=== PATIENT | male | born 2000 | race Caucasian/White ===

== ENCOUNTER 2023-04-09 16:15 | Emergency (ER) | payer OTHER, SELFPAY ==
[2023-04-09 16:21] VITALS: BP 150/90
[2023-04-09 16:57] VITALS: BMI 33.1
--- NOTE | 2023-04-09 16:59 | ED.GENMED ---
History of Present Illness
General
Chief Complaint: Crisis Evaluation
Source: patient
Time Seen by Provider: 04/09/23 16:35
Travel History
Have you had any contact with someone who has COVID-19?: No
Do you have any symptoms of coronavirus? Fever > 100 degrees, chills, cough, shortness of breath, sore throat, loss of taste or smell, muscle aches, or headache?: No
History of Present Illness
History of Present Illness:
This patient is a 23-year-old male with a history of depression/anxiety, currently on medication, most recently seen at [facility] on March 31 at which time he did not express SI. He presents today with increasing depressive symptoms and thoughts of
not wanting to live. He denies having a specific plan in place. Patient also suffers from anxiety and states that he has been using his mother's Klonopin from time to time. He does not feel it that is helping. He denies any physical complaints
such as chest pain, shortness of breath, fever, chills, headache, or other complaints.
Past History
Past History
ED Past Medical History: Asthma, Psychiatric and Other (per mom Began skipping school more when switched from [employer] to Public school. Diagnosed with 'school phobia' and stayed out for 6 months in 8th grade.)
ED Past Surgical History: None
Patient has exhibited threatening behavior?: No (When questioned, patient denies attempt at suicide and he denies feeling suicidal at this time.)
Social History
Tobacco: Non-smoker
Alcohol: None
Drug: None
Personal: Single
Living: with family (Mom states she is going through divorce with still in the house. She feels this contributes to the stress withing the household.)
Employment: Not employed
Family History
Family History: Other (Mother of patient states sibling with depression.)
Phy Exam
Physical Exam
Physical Exam:
GENERAL: Alert , in no apparent distress
EYE: pupils equal and reactive
NECK: Supple, no significant adenopathy.
ENT: o/p clr, mmm.
CARDIAC: Regular rate and rhythm .
LUNGS: Clear breath sounds bilaterally, no acute respiratory distress, no wheezes/rales/rhonchi
ABDOMEN: Soft, without focal tenderness, no r/g, no cvat
NEUROLOGICAL: Alert and oriented, no focal neuro deficits
SKIN: Warm and dry, skin intact.
MUSCULOSKELETAL: No edema, well perfused.
PSYCH: Depressed affect, tearful at times
Course
Orders/Labs/Results
Orders:
Orders
04/09/23 16:26
Case Management Consult ONCE
Case Management Consult: Other
Requested By:: NURSING
Comment: per protocol
04/09/23 17:06
Acetaminophen Urgent
Alcohol Urgent
Complete Blood Count/With Diff Urgent
Comprehensive Metabolic Panel Urgent
Salicylate Urgent
TSH Reflex To Free T4 Urgent
Urinalysis Reflex To Culture Urgent
Date Specimen was Collected: 04/09/23
Time Specimen was Collected: 16:54
Urine Drug Abuse Screen Urgent
Date Specimen was Collected: 04/09/23
Time Specimen was Collected: 16:54
04/09/23 18:05
Crisis Consult Urgent
Reason for Consult: reports SI
Abnormal Lab Results
04/09/23
17:06
MCV 79.4 L fL
(80.0-94.0)
Glucose 105 H mg/dl
(70-99)
Salicylates < 1.0 L mg/dl
(2.0-20.0)
Acetaminophen < 10 L ug/ml
(10-30)
04/09/23 17:06
04/09/23 17:06
Vital Signs
Initial and Last Documented VS:
Initial Vital Signs
Temp Pulse Resp BP Pulse Ox
98.3 F 77 20 150/90 99
04/09/23 16:21 04/09/23 16:21 04/09/23 16:21 04/09/23 16:21 04/09/23 16:21
Last Documented Vital Signs
Temp Pulse Resp BP Pulse Ox
98.3 F 77 20 150/90 99
04/09/23 16:21 04/09/23 16:21 04/09/23 16:21 04/09/23 16:21 04/09/23 16:21
*Critical Care Note
Total Time (30-74mins, 75-104mins- exclusive of procedures): Not Applicable
Update Note
Update Note:
Patient presents to the Emergency Department with ____depressive feelings
Number and Complexity of Problems Addressed at the Encounter
� Chronic conditions affecting care:
� Acute Exacerbation and/or Progression of Chronic Illness:
� Differential Diagnosis includes: But not limited to major depressive disorder,electrolyte d/o, etc.
Amount and/or Complexity of Data to be Reviewed and Analyzed
� I performed an independent evaluation of and my interpretation is:
EKG:
CT:
Xrays:
Laboratory Studies: unremarkable
Other:
� Review of other/old records reveals:
� Clinical information was obtained by an independent historian:
� Prescriptions/Medications Considered but not given:
� Further testing considered but not performed:
Risk of Complications and/or Morbidity or Mortality of Patient Management
� Social determinants of health affecting care:
� Discussion with other providers (PCP, Hospitalists, Consultants, etc):
� Escalation of care including admission/observation vs risk of discharge considered:Brother remains at bedside, pt denies si repeatedly now and has never had a plan, however is agreeable to 201 inpatient care. Crisis aware and
will make arrangments for.
ED Attending Note
-
Portions of this chart may have been created with voice recognition software.� Occasional wrong word or��sound alike� substitutions may have occurred due to the inherent limitations of voice recognition software.
Discharge Plan
Departure
Patient Disposition: [facility]
Date of Disposition: 04/09/23
Time of Disposition: 22:49
Condition: Good
Discharge Problem:
Depression
Instructions: Depression, Adult (DC), BLOOD PRESSURE
Prescriptions:
No Action
clonazepam 0.5 MG tablet
0.5 mg PO HS
albuterol sulfate [Ventolin HFA] 90 MCG/PUFF HFA aerosol inhaler
1 - 2 puff inhalation Q4HPRN PRN (Reason: sob/wheezing)
Patient Comments:
Patient stated that he uses it more than prescribed
fexofenadine [Aminata] 180 MG tablet
180 mg PO DAILY
albuterol sulfate [Proventil HFA] 90 MCG/PUFF HFA aerosol inhaler
2 puff inhalation Q4HPRN PRN (Reason: shortness of breath) Qty: 1 0RF
citalopram 20 MG tablet
40 mg PO DAILY
Referrals:
UNKNOWN - PT DOES,NOT KNOW [Unknown Provider] -
Activity Restrictions/Additional Instructions:
IF YOU DEVELOP CHEST PAIN, TROUBLE BREATHING, FEVER, VOMITING, THOUGHTS OF WANTING TO HURT YOURSELF OR OTHERS, OR OTHER WORRISOME SIGNS, GO TO THE ER IMMEDIATELY!
Interventions
Interventions:
*Risk Screen - Suicide Last Done: 04/09/23 16:24
*General Assessment Last Done: 04/09/23 16:57
*Neglect/Abuse Screening Last Done: 04/09/23 16:24
*ED COVID-19 Vaccine History Last Done: 04/09/23 16:57
*Nursing Disposition Last Done: 04/09/23 22:54
ED-Psychological Assessment Last Done: 04/09/23 16:57
Discharge Date and Time
Discharge Date/Time: 04/09/23 22:54
[2023-04-09 17:14] LABS: % Basophils 0.8 % (0-2); % Eosinophils 1.5 % (0-6); % Immature Granulocytes 0.3 % (0-0.5); % Monocytes 4.9 % (1.7-9.3); % Neutrophils 56.5 % (42.2-75.2); Absolute Basophils 0.1 10^3/uL (0-0.2); Absolute Eosinophils 0.1 10^3/uL (0-0.7); Absolute Lymphocytes 2.9 10^3/uL (1.2-3.4); Absolute Monocytes 0.4 10^3/uL (0.1-0.6); Absolute Neutrophils 4.5 10^3/uL (1.4-6.5); Hematocrit 46.9 % (39.0-52.0); Hemoglobin 16.7 g/dL (13.0-18.0); Mean Corp Hgb Conc. 35.6 g/dL (33.0-37.0); Mean Corpuscular Hgb 28.3 pg (27.0-31.0); Mean Corpuscular Volume 79.4 fL (80.0-94.0); Mean Platelet Volume 9.7 fL (7.4-10.4); Nucleated Red Blood Cells % 0 % (-); Platelet Count 330 10^3/uL (130-400); Red Blood Cell Count 5.91 10^6/uL (4.70-6.10); White Blood Cell Count 7.9 10^3/uL (4.8-10.8)
[2023-04-09 17:18] LABS: Urine Albumin Negative (Neg - Trace); Urine Bilirubin Negative (Negative); Urine Character Clear (Clear); Urine Color Yellow; Urine Glucose Negative (Negative); Urine Ketone Negative (Negative); Urine Leukocyte Negative (Negative); Urine Nitrite Negative (Negative); Urine Occult Blood Negative (Negative); Urine Urobilinogen Negative (Neg - 1+); Urine pH 6.5 (5.0-9.0)
[2023-04-09 17:26] LABS: Amphetamines Negative (Negative); Barbiturates Negative (Negative); Benzodiazepines Negative (Negative); Buprenorphine Negative (Negative); Cocaine Negative (Negative); Marijuana Negative (Negative); Methadone Negative (Negative); Methamphetamines Negative (Negative); Opiates Negative (Negative); Phencyclidine Negative (Negative); Tricyclic Antidepressants Negative (Negative)
[2023-04-09 17:37] LABS: ALT (SGPT) 42 U/L (0-50); AST (SGOT) 30 U/L (17-59); Acetaminophen < 10 ug/ml (10-30); Alkaline Phosphatase 87 U/L (38-126); Blood Urea Nitrogen 13 mg/dl (9-20); Carbon Dioxide 28 mmol/L (22-30); Chloride 103 mmol/L (98-107); Estimated Creatinine Clearance > 125 ml/min; Glucose 105 mg/dl (70-99); Potassium 4.4 mmol/L (3.5-5.1); Salicylate < 1.0 mg/dl (2.0-20.0); Sodium 138 mmol/L (135-145); Total Bilirubin 0.7 mg/dl (0.2-1.3); eGFR > 60.00
[2023-04-09 17:38] LABS: Alcohol None Detected
[2023-04-09 18:08] LABS: TSH Reflex To Free T4 2.05 uIU/ml (0.47-4.68)
== END 2023-04-09 22:54 ==
LOC: EMR 16:15
PROVIDERS: EMERGENCY PHYSICIAN Emergency Medicine
DX: F32.A Depression, unspecified (principal); F41.9 Anxiety disorder, unspecified
CPT/HCPCS: 99285; 80053; 80143; 80179; 80306; 81003; 82077; 84443; 85025

== ENCOUNTER 2024-10-12 17:15 | Emergency (ER) | payer OTHER, SELFPAY ==
[2024-10-12 17:25] VITALS: BP 143/79
[2024-10-12 17:52] LABS: Hematocrit 44.4 % (39.0-52.0); Hemoglobin 15.4 g/dL (13.0-18.0); Mean Corp Hgb Conc. 34.7 g/dL (33.0-37.0); Mean Corpuscular Volume 80.6 fL (80.0-94.0); Nucleated Red Blood Cells % 0 % (-); Platelet Count 281 10^3/uL (130-400); Red Cell Dist. Width 12.2 % (11.5-14.5)
[2024-10-12 18:18] LABS: ALT (SGPT) 32 U/L (0-50); AST (SGOT) 18 U/L (17-59); Albumin 5.1 g/dl (3.5-5.0); Alkaline Phosphatase 62 U/L (38-126); Blood Urea Nitrogen 16 mg/dl (9-20); Calcium 9.8 mg/dl (8.4-10.2); Carbon Dioxide 25 mmol/L (22-30); Chloride 105 mmol/L (98-107); Glucose 89 mg/dl (70-99); Potassium 4.4 mmol/L (3.5-5.1); Sodium 140 mmol/L (135-145); Total Protein 7.3 g/dl (6.3-8.2); eGFR > 60.00
[2024-10-12 18:19] LABS: Troponin I < 0.012 ng/ml
[2024-10-12 19:46] VITALS: BP 125/73; BMI 24.9
--- NOTE | 2024-10-12 19:49 | EDRN ---
Pt notes for the past week that his chest gets tight with any exercise. last night, pt went on a walk and without 10-15 minutes his chest got tight. Tightness goes away with rest. Pt did not use his inhaler because he did not have any trouble
breathing. No fever/chills,cough, abd pain, n/v, weakness, dizziness.
[2024-10-12 20:00] VITALS: BP 121/67
[2024-10-12 21:00] VITALS: BP 130/59
--- NOTE | 2024-10-12 21:25 | ED.GENMED ---
History of Present Illness
General
Chief Complaint: Chest Pain
Source: patient
Exam Limitations: none
Time Seen by Provider: 10/12/24 20:50
Nursing documentation reviewed up to this point in time: agreed with
History of Present Illness
History of Present Illness:
24-year-old male who reports experiencing chest tightness with physical activities such as lifting weights or walking over the past week. The symptom onset occurs about 5-10 minutes into the activity and is described as significant pressure over the
entire chest, non radiating. The tightness resolves with rest. The patient does not experience shortness of breath, sweating, nausea, vomiting, lightheadedness, or dizziness associated with the chest pain. He continues walking until he returns home
despite the discomfort.
The patient has recently increased his weightlifting efforts over the past six months. No change in pain with movement or pressing on th chest.
Past History
Past History
ED Past Medical History: Asthma, Psychiatric and Other (per mom Began skipping school more when switched from [employer] to [employer] school. Diagnosed with 'school phobia' and stayed out for 6 months in 8th grade.)
ED Past Surgical History: None
Patient has exhibited threatening behavior?: No (When questioned, patient denies attempt at suicide and he denies feeling suicidal at this time.)
Social History
Tobacco: Non-smoker
Alcohol: None
Drug: None
Personal: Single
Living: with family (Mom states she is going through divorce with still in the house. She feels this contributes to the stress withing the household.)
Employment: Not employed
Family History
Family History: Other (Mother of patient states sibling with depression.)
Review of Systems
Review of Systems
Allergies reviewed?: Yes
All Other Systems: ROS reviewed and negative except as documented in HPI and ROS
Constitutional: Denies fever or fatigue
Respiratory: Denies cough or trouble breathing
Cardiac: Reports chest pain; Denies diaphoresis or palpitations
ABD/GI: Denies abdominal pain, nausea or vomiting
Musculoskeletal: Reports no symptoms
Skin: Reports no symptoms
Neurological: Reports no symptoms
Phy Exam
Physical Exam
Physical Exam:
GENERAL: No acute distress. A&Ox3.
CONSTITUTIONAL: Afebrile.
EYES: clear, conjunctivae normal
ENMT: moist mucus membranes, Pharynx nl
RESPIRATORY: Regular respirations, nonlabored, lungs clear.
CARDIOVASCULAR: Regular rate and rhythm, no murmurs, no rubs.
GI: Soft, nontender, normal BS
MUSCULOSKELETAL: Unable to reproduce chest pain with palpation of chest wall/ribs. Moves with ease. Well perfused.
SKIN: Warm, dry, pink
PSYCH: Normal mood and affect. Well kept, interactive and appropriate
NEUROLOGIC: Awake, alert and oriented. No focal neurological deficits
Scores
Heart Score for Chest Pain Patients
STEMI patient?: Not applicable
Course
Orders/Labs/Results
Orders:
Orders
10/12/24 17:28
Electrocardiogram (*1) Urgent
Reason for Study: Chest Pain
EKG- Treatment ONCE
10/12/24 17:35
Complete Blood Count/With Diff Urgent
Comprehensive Metabolic Panel Urgent
Troponin I Urgent
10/12/24 20:59
CR Chest - 2 Views Urgent
Comment:
Reason For Exam: chest pjressure with exercising
Abnormal Lab Results
10/12/24
17:35
MPV 10.5 H fL
(7.4-10.4)
Albumin 5.1 H g/dl
(3.5-5.0)
10/12/24 17:35
10/12/24 17:35
Vital Signs
Initial and Last Documented VS:
Initial Vital Signs
Temp Pulse Resp BP Pulse Ox
98.7 F 81 16 143/79 100
10/12/24 17:25 10/12/24 17:25 10/12/24 17:25 10/12/24 17:25 10/12/24 17:25
Last Documented Vital Signs
Temp Pulse Resp BP Pulse Ox
98.7 F 52 15 121/69 100
10/12/24 17:25 10/12/24 22:39 10/12/24 21:00 10/12/24 22:39 10/12/24 22:39
Head Bone Grinder consulted with Physician
Head Bone Grinder consulted with physician?: Yes
Name of Physician Consulted: Gael
MDM/Problems Addressed
Differential Diagnosis Includes:
musculoskeletal chest pain, GERD, ACS, costochondritis, MVP, myocarditis, anxiety
MDM/Problems Addressed:
24-year-old male who reports experiencing chest tightness with physical activities such as lifting weights or walking over the past week. The symptom onset occurs about 5-10 minutes into the activity and is described as significant pressure over the
entire chest, non radiating. The tightness resolves with rest. The patient does not experience shortness of breath, sweating, nausea, vomiting, lightheadedness, or dizziness associated with the chest pain. He continues walking until he returns home
despite the discomfort.
The patient has recently increased his weightlifting efforts over the past six months. No change in pain with movement or pressing on th chest.
Blood work, including troponin levels, is normal, suggesting no acute cardiac damage.
10:15 PM: Chest x-ray NAD
Pt reassured.
Referred to cardiology
Case discussed with Dr. Mayo who agrees with plan
*Pulse Oximetry
SaO2: 100
Oxygen Mode of Delivery: Room air
Patient hypoxic: no
*Critical Care Note
Total Time (30-74mins, 75-104mins- exclusive of procedures): Not Applicable
ED Attending Note
-
Portions of this chart may have been created with voice recognition software.� Occasional wrong word or��sound alike� substitutions may have occurred due to the inherent limitations of voice recognition software.
Discharge Plan
Departure
Patient Disposition: Home (Routine Discharge)
Date of Disposition: 10/12/24
Time of Disposition: 22:17
Patient with high blood pressure during this ER visit?: No
Condition: Good
Discharge Problem:
Atypical chest pain
Instructions: Chest Pain That Is Not Caused by the Heart (DC), Costochondritis (DC)
Prescriptions:
No Action
albuterol sulfate [Ventolin HFA] 90 MCG/PUFF HFA aerosol inhaler
1 - 2 puff inhalation Q4HPRN PRN (Reason: sob/wheezing)
Aminata
1 tab PO DAILY
Patient Comments:
pt does not know mg
Referrals:
NONE,* [Family Provider, Internal Medicine]
Activity Restrictions/Additional Instructions:
As we discussed, there is nothing worrisome in your workup here today.
I have provided you with instructions on costochondritis, FYI.
Your EKG is normal and all of your lab work is normal. Specifically there is no indication of heart attack or injury to your heart.
I sent your contact information to our primary care provider hotline and someone should be calling you within the next couple of days to get you a primary care doctor.
Interventions
Interventions:
*Risk Screen - Suicide Last Done: 10/12/24 17:25
*General Assessment Last Done: 10/12/24 17:25
*Neglect/Abuse Screening Last Done: 10/12/24 17:25
*ED- Fall Risk Assessment Last Done: 10/12/24 19:51
*Nursing Disposition Last Done: 10/12/24 22:47
ED- Cardiac Assessment Last Done: 10/12/24 19:57
Discharge Date and Time
Discharge Date/Time: 10/12/24 22:47
Print Language: DIVEHI
[2024-10-12 22:39] VITALS: BP 121/69
== END 2024-10-12 22:47 | disposition home or self-care (01) ==
LOC: EMR 17:15
PROVIDERS: Emergency Medicine; EMERGENCY PHYSICIAN Student in an Organized Health Care Education/Training Program
DX: R07.89 Other chest pain (principal); J45.909 Unspecified asthma, uncomplicated; Z63.8 Other specified problems related to primary support group
CPT/HCPCS: 99284; 71046; 80053; 84484; 85025; 93005

== ENCOUNTER 2024-10-15 01:37 | Emergency (ER) | payer OTHER, SELFPAY ==
[2024-10-15 01:37] VITALS: BP 138/69
--- NOTE | 2024-10-15 06:03 | ED.GENMED ---
History of Present Illness
General
Chief Complaint: Anxiety
Time Seen by Provider: 10/15/24 06:02
History of Present Illness
History of Present Illness:
PAST MEDICAL HISTORY AND REVIEW OF OLD RECORDS
- History of anxiety/depression, panic attack, asthma. I reviewed records, the patient was seen here 3 days ago with chest discomfort. At that time, troponin was unremarkable.
Note:
CHIEF COMPLAINT(S)
Episodes of muscle spasms and anxiety attributed to panic attacks.
HISTORY OF PRESENT ILLNESS
The patient is a 24-year-old male who presented to the emergency department with a history of chest pressure occurring during exertion over the past week. The patient reports that the symptoms did not occur on a day of rest. The initial presentation
was a week ago when he experienced pressure in the chest associated with physical exertion, described as 'a lot of pressure in my chest.' Two nights ago, at approximately 11:30 PM, the patient experienced what he describes as a panic attack. This
involved pervasive muscle spasms throughout his body, including the legs, arms, and chest, alongside a pounding heart. The occurrence happened while he was awake, and he noted that later his muscles began 'shaking again for no reason.'
The patient has a history of cessation of venlafaxine (Effexor) and bupropion (Wellbutrin) approximately one year ago, noting that about three months after stopping these medications, he began experiencing muscle spasms that lasted up to an hour. On
the day of presentation, he reported an episode lasting 2.5 hours. He has not been on any medications since discontinuing venlafaxine and bupropion.
He had previously been prescribed these medications by a psychiatrist but discontinued them on his own. The patient is wary of resuming daily medications but is open to as-needed medication to manage acute episodes. During earlier experiences with
panic attacks, he had used a family members clonazepam (Klonopin) with some relief.
The patient denies being a danger to himself or others.
PHYSICAL EXAM
General: Alert, no acute distress.
Skin: Warm, dry.
Head: Normocephalic, atraumatic.
Neck: Supple, trachea midline.
Eye Ears, nose, mouth and throat: Oral mucosa moist.
Cardiovascular: Normal peripheral perfusion, No edema.
Respiratory: Respirations are non-labored.
Gastrointestinal : Abdomen nondistended
Back: Normal range of motion, Normal alignment.
Musculoskeletal: Normal ROM, normal strength.
Neurological: Alert and oriented to person, place, time, and situation, No focal neurological deficit observed.
Psychiatric: Cooperative, appropriate mood & affect other than maybe somewhat (affect
PROBLEM LIST
Acute Problems:
- Chest pressure with exertion
- Panic attack with muscle spasms
PLAN
- Provide a prescription for Alprazolam (Xanax) 0.5 mg to be taken as needed for severe panic attack episodes, ensuring it is used sparingly to avoid dependency issues.
- Review of previous lab results from an earlier visit, indicating normal cardiac markers.
- Option to return to prior medications (venlafaxine and bupropion) should symptoms persist and patient is willing, with a follow-up with a psychiatrist recommended to explore this option.
DIFFERENTIAL DIAGNOSIS
The Differential Diagnosis includes, in no particular order and is not limited to:
- Panic disorder
- Generalized anxiety disorder
- Cardiovascular disease (e.g., myocardial ischemia)
- Substance withdrawal syndrome
- Hyperthyroidism
- Electrolyte imbalance
- Conversion disorder
- Pheochromocytoma
- Seizure disorder
- Depression with somatic symptoms
Disposition:
SUMMARY OF ENCOUNTER
The patient, a 24-year-old male, presented to the emergency department with episodes of muscle spasms and anxiety attributed to panic attacks. He reported chest pressure during exertion over the past week, but presently feels improved. The patients
cardiac workup from a prior visit was unremarkable. Due to his reluctance to resume daily medication regimen, an as-needed approach was favored. A prescription for alprazolam (Xanax) 0.5 mg was provided to be used sparingly for severe panic attacks.
PLAN
- Prescribe alprazolam (Xanax) 0.5 mg to be taken as needed for acute episodes of panic attacks. Advise caution to avoid dependency.
- Monitor symptoms and reassess medication needs based on patients experience.
INDEPENDENT REVIEW OF LABS AND INTERPRETATION OF TESTS
My independent review of prior cardiac workup indicates the results were unremarkable, confirming no acute cardiac abnormalities.
MEDICATION RECONCILIATION
- Prescription provided for alprazolam (Xanax) 0.5 mg, to be used as needed for acute panic episodes.
MEDICAL DECISION MAKING
1. Number and Complexity of Problems Addressed: Chronic conditions affecting care include panic attacks and anxiety-associated muscle spasms.
2. Data:
- Category 1: Reviewed prior cardiac workup which was unremarkable.
3. Risk: Prescription medication was prescribed, and caution is advised due to potential dependency on alprazolam.
DIAGNOSIS
- Panic disorder (F41.0)
- Muscle spasm (M62.838)
Past History
Past History
ED Past Medical History: Asthma, Psychiatric and Other (per mom Began skipping school more when switched from [employer] to [employer] school. Diagnosed with 'school phobia' and stayed out for 6 months in 8th grade.)
ED Past Surgical History: None
Patient has exhibited threatening behavior?: No (When questioned, patient denies attempt at suicide and he denies feeling suicidal at this time.)
Social History
Tobacco: Non-smoker
Alcohol: None
Drug: None
Personal: Single
Living: with family (Mom states she is going through divorce with still in the house. She feels this contributes to the stress withing the household.)
Employment: Not employed
Family History
Family History: Other (Mother of patient states sibling with depression.)
Phy Exam
Physical Exam
Physical Exam:
See HPI
Course
Vital Signs
Initial and Last Documented VS:
Initial Vital Signs
Temp Pulse BP Pulse Ox
36.5 C 88 138/69 100
10/15/24 01:37 10/15/24 01:37 10/15/24 01:37 10/15/24 01:37
Last Documented Vital Signs
Temp Pulse BP Pulse Ox
36.5 C 88 138/69 100
10/15/24 01:37 10/15/24 01:37 10/15/24 01:37 10/15/24 06:04
*Pulse Oximetry
SaO2: 100
Oxygen Mode of Delivery: Room air
Patient hypoxic: no
*Critical Care Note
Total Time (30-74mins, 75-104mins- exclusive of procedures): Not Applicable
ED Attending Note
-
Portions of this chart may have been created with voice recognition software.� Occasional wrong word or��sound alike� substitutions may have occurred due to the inherent limitations of voice recognition software.
Discharge Plan
Departure
Patient Disposition: Home (Routine Discharge)
Date of Disposition: 10/15/24
Time of Disposition: 06:15
Patient with high blood pressure during this ER visit?: Yes
Discharge Problem:
Anxiety attack
Instructions: Anxiety, Adult (DC), BLOOD PRESSURE
Prescriptions:
New
alprazolam [Xanax] 0.5 mg tablet
0.5 - 1 mg PO HS PRN (Reason: anxiety) Qty: 10 0RF
No Action
albuterol sulfate [Ventolin HFA] 90 MCG/PUFF HFA aerosol inhaler
1 - 2 puff inhalation Q4HPRN PRN (Reason: sob/wheezing)
Aminata
1 tab PO DAILY
Patient Comments:
pt does not know mg
Referrals:
NONE,* [Family Provider, Internal Medicine]
Activity Restrictions/Additional Instructions:
I sent a prescription for Xanax to your pharmacy. Only take this on an as-needed basis for severe symptoms. Return here if worse or other concerns.
Interventions
Interventions:
*Risk Screen - Suicide Last Done: 10/15/24 02:02
*General Assessment Last Done: 10/15/24 05:30
*Neglect/Abuse Screening Last Done: 10/15/24 02:02
*ED- Fall Risk Assessment Last Done: 10/15/24 02:02
*ED COVID-19 Vaccine History Last Done: 10/15/24 02:02
ED-Psychological Assessment Last Done: 10/15/24 05:30
Discharge Date and Time
Print Language: BULGARIAN
== END 2024-10-15 06:25 | disposition home or self-care (01) ==
LOC: EMR 01:37
PROVIDERS: EMERGENCY PHYSICIAN Emergency Medicine
DX: F41.0 Panic disorder [episodic paroxysmal anxiety] (principal); F32.A Depression, unspecified; J45.909 Unspecified asthma, uncomplicated; Z63.8 Other specified problems related to primary support group; Z81.8 Family history of other mental and behavioral disorders
CPT/HCPCS: 99283